=== PATIENT | female | born 2000 | race Hispanic/Latino ===

== ENCOUNTER 2023-03-02 12:25 | Emergency (ER) | payer SELFPAY ==
[2023-03-02 12:27] VITALS: BP 125/101; PULSE 98; RESP 16; TEMP 36.3; O2SAT 95; BMI 23.6
[2023-03-02 13:19] VITALS: BP 114/68; PULSE 68; RESP 16; TEMP 36.6
[2023-03-02 13:32] LABS: Mucous, Urine 0 SEEN /hpf (<or=2+); Red Blood Cells-Urine 0 SEEN /hpf (0-5)
[2023-03-02 13:35] LABS: Color, Urine Yellow (Yellow); Glucose, Dipstick Normal (Normal); Ketone-Dipstick Negative (Negative); Leukocyte Esterase-Dipstick 500 /ul (Negative); Nitrite-Dipstick Positive (Negative); Occult Blood-Urine 25 /ul (Negative); Protein-Dipstick 30 mg/dl (Negative); Specific Gravity, Urine 1.015 (1.002-1.030); Urine Clarity Sl. Cloudy (Clear); Urine Urobilinogen 1 mg/dl (Normal)
[2023-03-02 13:43] LABS: Urine Bilirubin Dipstick 1 mg/dL (Negative)
[2023-03-02 13:44] LABS: Squamous Epithelial Cells - UA 0-5 SEEN /hpf (5-10); White Blood Cells 50-100 SEEN /hpf (0-5)
[2023-03-02 13:45] LABS: Bacteria 1+ /hpf (None Seen); Internal QC Validated? YES +Cl - CLEAR BKGD; Pregnancy, Urine Negative Negative
--- NOTE | 2023-03-02 13:46 | ED.VIS.FEGU ---
HPI <KARINA Chavez - Last Filed: 03/02/23 16:27> HPI - Female History of Present Illness Chief Complaint: Complaint Narrative Narrative: Patient presenting today due to worsening increased urinary frequency and urgency and dysuria that started yesterday evening. She also reports that several days ago she noticed an odorous weight vaginal discharge that has now gone away but would like to be STD tested. She denies any history of STDs. Last menstrual period was 02/14/2023 and was regular. She also reports having vaginal discomfort with intercourse. Denies a PMH of any chronic health conditions. She denies any fever, chills, abdominal pain, nausea, and vomiting. PFSH <KARINA Chavez - Last Filed: 03/02/23 16:27> PFSH Medical History no medical history Home Medications metronidazole 500 mg tablet 500 mg PO BID 7 days #14 tabs 03/02/23 [Rx Last Taken Unknown] sulfamethoxazole 800 mg-trimethoprim 160 mg tablet (Bactrim DS) 1 tab PO BID 3 days #6 tabs 03/02/23 [Rx Last Taken Unknown] Allergy/AdvReac Type Severity Reaction Status Date / Time No Known Allergies Allergy Verified 03/02/23 12:31 Family History no significant family his Surgical History no surgical history Social History Smoking Status: Never smoker ROS <KARINA Chavez - Last Filed: 03/02/23 16:27> ROS ED Constitutional Constitutional ED: Denies chills, fever(s) or sweats Cardiovascular Cardiovascular: Denies chest pain Respiratory/Chest Respiratory/Chest: Denies cough or dyspnea Gastrointestinal Gastrointestinal: Denies abdominal pain, nausea or vomiting Genitourinary Genitourinary ED: Reports dysuria, urinary frequency and urinary urgency; Denies hematuria Musculoskeletal Musculoskeletal: Denies back pain or myalgias Integumentary Denies abscess, Abrasions or rash Neurologic Neurologic: Denies weakness EXAM <KARINA Chavez - Last Filed: 03/02/23 16:27> Physical Exam Const Vital Signs: 03/02/23 12:27 03/02/23 13:19 03/02/23 13:20 Temperature 97.3 F L 98 F Temperature Source Temporal Oral Pulse Rate 98 68 Respiratory Rate 16 16 Respiratory Pattern Normal Blood Pressure 125/101 H 114/68 Blood Pressure Mean 109 83 Pulse Ox 95 Oxygen Delivery Method Room Air Room Air 03/02/23 15:11 Temperature 97.4 F L Temperature Source Oral Pulse Rate 66 Respiratory Rate 16 Respiratory Pattern Blood Pressure 108/66 Blood Pressure Mean 80 Pulse Ox 99 Oxygen Delivery Method Room Air Positive well nourished, well developed and no apparent distress General Appearance ED: well developed HEENT Reports normocephalic and head/scalp atraumatic Mouth ED: Yes moist mucous membranes normal Eyes PERRL and EOMs intact bilaterally Neck full ROM and supple Chest Wall inspection of chest normal Resp normal respiratory effort and clear to auscultation bilaterally Cardio regular rate and regular rhythm GI soft to palpation, non-tender, non-distended and no masses Narrative: Vaginal wall tenderness with insertion of speculum, cervix visualized and is round, cervical os is closed, small amount of white discharge noted. No adnexal tenderness or masses felt. Back/Spine normal ROM and normal to inspection Extremity normal to inspection and full ROM Neuro oriented x3, CN's II-XII intact bilaterally, moves all extremities, no focal motor deficits and no sensory deficits noted Sensorium / Orientation: awake and alert Psych mental status grossly normal and thought process normal Skin no rashes or lesions noted and no wounds <Dr. Neil Zavala MD - Last Filed: 03/02/23 13:52> Physical Exam Const Vital Signs: 03/02/23 12:27 03/02/23 13:19 03/02/23 13:20 Temperature 97.3 F L 98 F Temperature Source Temporal Oral Pulse Rate 98 68 Respiratory Rate 16 16 Respiratory Pattern Normal Blood Pressure 125/101 H 114/68 Blood Pressure Mean 109 83 Pulse Ox 95 Oxygen Delivery Method Room Air Room Air 03/02/23 15:11 Temperature 97.4 F L Temperature Source Oral Pulse Rate 66 Respiratory Rate 16 Respiratory Pattern Blood Pressure 108/66 Blood Pressure Mean 80 Pulse Ox 99 Oxygen Delivery Method Room Air [facility] <KARINA Chavez - Last Filed: 03/02/23 16:27> [facility] Narrative Medical decision making narrative: Patient presenting due to dysuria and increased urinary frequency/urgency that she has had since last night. Patient is Mongolian-speaking so a online communications manager service has been used for this visit. She also reports noticing a white odorous vaginal discharge for several days. Patient did want a pelvic exam performed and wanted to be tested for STDs. UA obtained to rule out UTI and is positive, she will be started on Bactrim. On speculum examination, I do noticed a white discharge. Vaginal canal is very tender with speculum insertion, consistent with vaginitis. Wet prep does show clue cells, she will be started on Flagyl for BV. Chlamydia and gonorrhea are negative. She does not have a PCP, have given her referral for one. She has been given return instructions will be discharged home in stable condition. She is comfortable with plan. Lab Data Labs: Laboratory Results - last 24 hr 03/02/23 03/02/23 13:24 13:30 Urine Color Yellow Urine Clarity Sl. Cloudy Urine pH 6.0 Ur Specific [place] 1.015 Urine Protein 30 H Urine Glucose (UA) Normal Urine Ketones Negative Urine Occult Blood 25 H Urine Nitrite Positive H Urine Bilirubin 1 H Urine Urobilinogen 1 H Ur Leukocyte Esterase 500 H Urine RBC 0 SEEN Urine WBC 50-100 SEEN Ur Squamous Epith Cells 0-5 SEEN Urine Bacteria 1+ Urine Mucus 0 SEEN Urine Test Negative Chlamydia DNA (ORA) Cancelled N.gonorrhoeae DNA (ORA) Cancelled <Dr. Neil Zavala MD - Last Filed: 03/02/23 13:52> [facility] Lab Data Attestation: I reviewed the patient's lab results. Labs: Laboratory Results - last 24 hr 03/02/23 03/02/23 13:24 13:30 Urine Color Yellow Urine Clarity Sl. Cloudy Urine pH 6.0 Ur Specific [place] 1.015 Urine Protein 30 H Urine Glucose (UA) Normal Urine Ketones Negative Urine Occult Blood 25 H Urine Nitrite Positive H Urine Bilirubin 1 H Urine Urobilinogen 1 H Ur Leukocyte Esterase 500 H Urine RBC 0 SEEN Urine WBC 50-100 SEEN Ur Squamous Epith Cells 0-5 SEEN Urine Bacteria 1+ Urine Mucus 0 SEEN Urine Test Negative Chlamydia DNA (ORA) Cancelled N.gonorrhoeae DNA (ORA) Cancelled Treatment and Re-Evaluation Narrative: Seen and evaluated independently and in conjunction with physician assistant golf course superintendent. Agree with notes above unless documented otherwise. Healthy 23-year-old sexually active female with suprapubic pressure, urinary frequency, dysuria with pain radiating to the low back nonlateralizing for the last day. No fevers, nausea, vomiting. No hematuria. Also had a vaginal discharge and wants STD testing. Exam: Well-appearing no acute distress mild suprapubic tenderness no guarding or rebound no CVA tenderness. Plan: Urine with Prag, pelvic for wet prep, will do PCR for GC and chlamydia as well. Discharge Plan Triage Chief Complaint: Complaint Other Complaint: General Illness ED Midlevel Provider: Nia Holley ED Provider: Neil Zavala Dx/Rx/DC Orders Clinical Impression: UTI (urinary tract infection), Vaginitis Instructions: ED Cystitis Female Adult, ED Bacterial Vaginosis (BV) Prescriptions: New sulfamethoxazole-trimethoprim [Bactrim DS] 800-160 mg tablet 1 tab PO BID 3 Days Qty: 6 0RF metronidazole 500 mg tablet 500 mg PO BID 7 Days Qty: 14 0RF Primary Care Provider: Care Physician,No Primary Referrals: Stephane Rojo MD [Non-Staff] - 3-5 Days Care Physician,No Primary [Primary Care Provider] - Print Language: Mongolian Disposition Disposition: Home, Self Care Discharge Date/Time: 03/02/23 15:12
[2023-03-02 15:11] VITALS: BP 108/66; PULSE 66; RESP 16; TEMP 36.3; O2SAT 99
== END 2023-03-02 15:12 | disposition home or self-care (01) ==
PROVIDERS: Physician Assistant; Emergency Provider Emergency Medicine; Visit Provider Emergency Medicine
DX: N39.0 Urinary tract infection, site not specified (principal); N76.0 Acute vaginitis; Z11.3 Encounter for screening for infections with a predominantly sexual mode of transmission
CPT/HCPCS: 81001; 81025; 87210; 87491; 87591; 99282

== ENCOUNTER 2023-03-02 23:03 | Emergency (ER) | payer SELFPAY ==
[2023-03-02 23:04] VITALS: BP 113/59; PULSE 97; RESP 18; TEMP 37.1; O2SAT 98; BMI 22.7
[2023-03-03] MEDS: Ketorolac 15 MG/ML Vial IM (00:42)
[2023-03-03 00:59] VITALS: BP 121/60; PULSE 79; RESP 18
--- NOTE | 2023-03-03 01:46 | ED.VIS.FEGU ---
HPI HPI - Female History of Present Illness Chief Complaint: Complaint Narrative Narrative: 23-year-old female with dysuria and vaginal discomfort. Patient was seen earlier today and diagnosed with a UTI and BV. She had a pelvic exam. She was treated with Bactrim and Flagyl. She states that she still having discomfort. She thought she might have developed a fever today. She has not taken anything for pain such as ibuprofen or Tylenol. She has not take anything to mask a fever and she is afebrile here. 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 PFSH PFSH Home Medications metronidazole 500 mg tablet 500 mg PO BID 7 days #14 tabs 03/02/23 [Rx Last Taken Unknown] sulfamethoxazole 800 mg-trimethoprim 160 mg tablet (Bactrim DS) 1 tab PO BID 3 days #6 tabs 03/02/23 [Rx Last Taken Unknown] acetaminophen 650 mg tablet,extended release (Tylenol 8 Hour) 650 mg PO Q8H PRN fever or pain #30 tabs 03/03/23 [Rx Last Taken Unknown] ibuprofen 600 mg tablet 600 mg PO Q8H PRN PRN fever or pain #30 TABLETS 03/03/23 [Rx Last Taken Unknown] phenazopyridine 200 mg tablet (Pyridium) 200 mg PO Q8H PRN pain 6 doses #6 tabs 03/03/23 [Rx Last Taken Unknown] Allergy/AdvReac Type Severity Reaction Status Date / Time No Known Allergies Allergy Verified 03/02/23 23:07 Social History Smoking Status: Never smoker ROS ROS ED Constitutional Constitutional ED: Reports subjective; Denies chills or sweats Eyes Eyes: Denies change in vision ENT ENT ED: Denies ear pain or sore throat Cardiovascular Cardiovascular: Denies chest pain, palpitations or racing heartbeat Respiratory/Chest Respiratory/Chest: Denies cough, dyspnea or sputum Gastrointestinal Gastrointestinal: Denies abdominal pain, constipation, diarrhea, nausea or vomiting Genitourinary Genitourinary ED: Reports dysuria, urinary frequency and other Details: Vaginal discharge ; Denies hematuria Musculoskeletal Musculoskeletal: Denies arthralgias, myalgias or neck pain Integumentary Denies abscess, Abrasions or rash Neurologic Neurologic: Denies headache(s), paresthesias or weakness Psychiatric Psychiatric: Denies anxiety, depression, suicidal ideation or suicidal thoughts Endocrine Endocrinology: Denies polydipsia or polyuria EXAM Physical Exam Const Vital Signs: 03/02/23 23:04 03/03/23 00:59 Temperature 98.7 F Temperature Source Temporal Pulse Rate 97 79 Respiratory Rate 18 18 Blood Pressure 113/59 L 121/60 H Blood Pressure Mean 77 Pulse Ox 98 Oxygen Delivery Method Room Air Positive well nourished General Appearance ED: NAD HEENT Reports moist mucous membranes Eyes PERRL and EOMs intact bilaterally Neck no lymphadenopathy Resp normal respiratory effort and clear to auscultation bilaterally Auscultation: Negative for rales, rhonchi or wheezes Cardio regular rate and regular rhythm GI normal to inspection, nondistended, normoactive bowel sounds Neuro oriented x3 and CN's II-XII intact bilaterally Sensorium / Orientation: alert Motor Exam: strength 5/5 throughout Skin no rashes or lesions noted MDM MDM MDM Narrative Medical decision making narrative: Patient seen and evaluated for dysuria and vaginal discomfort. She had some discharge. She is diagnosed with a UTI and BV. She has not taken anything for pain today. No ibuprofen or Tylenol. After discussion I told her that we would prescribe her some Tylenol and ibuprofen which she can alternate. I will also give her some Pyridium she can take for the dysuria. I do not believe she needs a repeat pelvic and repeat urinalysis as these were done earlier today. She is amenable to this. She requested a shot of Toradol which was given. Return precautions were discussed. Impression: 1. UTI 2. BV Discharge Plan Triage Chief Complaint: Complaint ED Provider: Hermelindo Sandoval Dx/Rx/DC Orders Instructions: Bacterial Vaginosis, UTIs Women Prescriptions: New ibuprofen 600 mg tablet 600 mg PO Q8H PRN PRN (Reason: fever or pain) Qty: 30 0RF acetaminophen [Tylenol 8 Hour] 650 mg tablet extended release 650 mg PO Q8H PRN (Reason: fever or pain) Qty: 30 0RF phenazopyridine [Pyridium] 200 mg tablet 200 mg PO Q8H PRN (Reason: pain) Qty: 6 0RF No Action sulfamethoxazole-trimethoprim [Bactrim DS] 800-160 mg tablet 1 tab PO BID 3 Days Qty: 6 0RF metronidazole 500 mg tablet 500 mg PO BID 7 Days Qty: 14 0RF Primary Care Provider: Care Physician,No Primary Referrals: [facility] [Outside] - 3-5 Days Care Physician,No Primary [Primary Care Provider] - Disposition Disposition: Home, Self Care Discharge Date/Time: 03/03/23 00:59
== END 2023-03-03 00:59 | disposition home or self-care (01) ==
PROVIDERS: Emergency Provider Student in an Organized Health Care Education/Training Program; Visit Provider Student in an Organized Health Care Education/Training Program
DX: N39.0 Urinary tract infection, site not specified (principal)
CPT/HCPCS: 96372; 99282

== ENCOUNTER 2023-05-02 17:47 | Emergency (ER) | payer SELFPAY ==
[2023-05-02 17:49] VITALS: BP 96/66; PULSE 69; RESP 14; TEMP 36.2; O2SAT 100; BMI 24.0
[2023-05-02 19:39] LABS: Absolute Lymphocyte Count 1.79 X10^3/uL (0.83-4.51); Absolute Neutrophil Count 4.3 X10^3/uL (2.0-7.7); Basophil# 0.01 X10^3/uL; Basophil% 0.1 % (0-1); Eosinophil# 0.06 X10^3/uL; Eosinophils% 0.9 % (0-5); Hematocrit 34.2 % (37-47); Hemoglobin 10.5 g/dL (12.0-15.0); Lymphocyte # 1.79 X10^3/ul (0.83-4.51); Lymphocyte % 26.8 % (19-41); Mean Corp Hgb Conc 30.7 g/dL (32-36); Mean Corpuscular Hgb 21.6 pg (27.0-32.0); Mean Corpuscular Volume 70.4 fL (81-99); Mean Platelet Vol. 12.2 fl (6.2-12.0); Monocyte% 7.5 % (0-10); NRBC Flagged by Analyzer 0 % (0-5); Neutrophil # 4.31 X10^3/uL (2.7-7.7); Neutrophil % 64.4 % (47-70); Platelet Count 223 K/mm3 (150-450); RBC Distribution Width CV 15.9 % (11.6-14.6); RBC Distribution Width SD 40.3 fl (35.1-43.9); Red Blood Count 4.86 M/mm3 (4.2-5.4); White Blood Count 6.7 K/mm3 (4.4-11.0)
[2023-05-02 19:48] VITALS: RESP 15
[2023-05-02 19:55] LABS: Anion Gap 7 (5-15); BUN 8 mg/dL (7-18); BUN/Creat Ratio 14.7 RATIO (10-20); Calcium,Total 8.5 mg/dL (8.5-10.1); Chloride 103 mmol/L (98-107); Creatinine, Serum 0.55 mg/dL (0.55-1.02); EST Glomerular Filtration Rate 149 mL/min (>60); Est Glom Filt Rate - Afr Amer 180 mL/min (>60); Estimated Creatinine Clearance 116.22 ml/min; Glucose 89 mg/dL (74-106); Potassium 3.3 mmol/L (3.5-5.1); Sodium Level 135 mmol/L (136-145)
[2023-05-02 20:17] LABS: Mucous, Urine 0 SEEN /hpf (<or=2+); Red Blood Cells-Urine 0 SEEN /hpf (0-5)
[2023-05-02 20:20] LABS: Color, Urine Yellow (Yellow); Glucose, Dipstick Normal (Normal); Ketone-Dipstick Negative (Negative); Leukocyte Esterase-Dipstick 25 /ul (Negative); Nitrite-Dipstick Negative (Negative); Occult Blood-Urine Negative /ul (Negative); Protein-Dipstick Negative (Negative); Urine Bilirubin Dipstick Negative (Negative); Urine Clarity Sl. Cloudy (Clear); Urine Urobilinogen Normal (Normal); Urine pH 6.5 (5.0 - 8.0)
--- NOTE | 2023-05-02 20:41 | US_ITS ---
STUDY: FIRST TRIMESTER OBSTETRICAL ULTRASOUND REASON FOR EXAM: Female, 23 years old abdominal pain LMP: 03/16/2023 TECHNIQUE: Transabdominal and Transvaginal TECHNICAL QUALITY: Adequate. PRIOR ULTRASOUND: None. FINDINGS: There is visualization of a single gestational sac in a normal intrauterine position. The mean sac diameter (MSD) measures 1.5 cm, indicating an estimated gestational age (EGA) of 6 weeks, 2 days. The gestational sac shape is within normal limits. There is a visualized yolk sac. The yolk sac measures 2.8 mm. The placenta is non-visualized. There is visualization of a live embryo. The crown-rump length (CRL) measures 3.5 mm, indicating an estimated gestational age (EGA) of 6 weeks, 1 days. There is demonstrated cardiac activity with a heart rate of 106 bpm. The estimated gestation age (EGA) by LMP is 6 weeks, 5 days. The estimated date of delivery (COSMO) by LMP is 12/21/2023. The estimated gestation age (EGA) by US is 6 weeks, 2 days. The estimated date of delivery (COSMO) by US is 12/24/2023. The uterus measures 7.2 x 5.9 x 4.6 cm. There is no demonstrated uterine fibroid. The cervix is closed. The right ovary measures 3.4 x 2.0 x 1.3 cm. There is no right ovarian cyst. There is no visualized right adnexal mass or complex lesion. The left ovary measures 4.6 x 2.2 x 1.9 cm. There is a 2 cm left ovarian cyst. There is no visualized left adnexal mass or complex lesion. There is no fluid in the cul de sac. US/Transvaginal w/Preg US IMPRESSION: Single live intrauterine gestation with ultrasound EGA of approximately 6 weeks 2 days. Electronically Signed: Wayne Garcia MD at 21:40 EDT ,
[2023-05-02 20:48] LABS: hCG Titer Quant., Serum 13804 mIU/mL (1-3)
[2023-05-02 21:17] LABS: Bacteria RARE /hpf (None Seen); Squamous Epithelial Cells - UA 0-5 SEEN /hpf (5-10); White Blood Cells 0-5 SEEN /hpf (0-5)
[2023-05-02 22:01] VITALS: BP 105/54; PULSE 72; RESP 15; O2SAT 100
[2023-05-02 22:11] VITALS: BP 105/54; PULSE 72; RESP 15; O2SAT 100
--- NOTE | 2023-05-02 22:44 | EDS_ITS ---
HPI HPI - Female History of Present Illness Chief Complaint: Abd Pain Narrative Narrative: 23-year-old female currently unknown duration. Last menstrual period was in February. She has had no vaginal bleeding or spotting. She does have some cramping in her lower abdomen. She has not had care. She is G1, . Patient denies any urinary complaints. Patient is Algerian-speaking but prefers to use her phone for the interpretation. PFSH PFSH Medical History no medical history Home Medications metronidazole 500 mg tablet 500 mg PO BID 7 days #14 tabs 03/02/23 [Rx Last Taken Unknown] sulfamethoxazole 800 mg-trimethoprim 160 mg tablet (Bactrim DS) 1 tab PO BID 3 days #6 tabs 03/02/23 [Rx Last Taken Unknown] acetaminophen 650 mg tablet,extended release (Tylenol 8 Hour) 650 mg PO Q8H PRN fever or pain #30 tabs 03/03/23 [Rx Last Taken Unknown] ibuprofen 600 mg tablet 600 mg PO Q8H PRN PRN fever or pain #30 TABLETS 03/03/23 [Rx Last Taken Unknown] phenazopyridine 200 mg tablet (Pyridium) 200 mg PO Q8H PRN pain 6 doses #6 tabs 03/03/23 [Rx Last Taken Unknown] ondansetron 4 mg disintegrating tablet 4 mg PO Q8H PRN PRN Nausea #14 tabs 05/02/23 [Rx Last Taken Unknown] Allergy/AdvReac Type Severity Reaction Status Date / Time No Known Allergies Allergy Verified 05/02/23 17:48 Surgical History no surgical history Social History Smoking Status: Never smoker ROS ROS ED Constitutional Constitutional ED: Denies chills, fever(s) or sweats Eyes Eyes: Denies blurry vision or change in vision ENT ENT ED: Denies ear pain or sore throat Cardiovascular Cardiovascular: Denies chest pain, palpitations or racing heartbeat Respiratory/Chest Respiratory/Chest: Denies cough, dyspnea or sputum Gastrointestinal Gastrointestinal: Reports abdominal pain and nausea; Denies constipation, diarrhea or vomiting Genitourinary Genitourinary ED: Denies dysuria, hematuria or urinary frequency Musculoskeletal Musculoskeletal: Denies arthralgias, myalgias or neck pain Integumentary Denies abscess, Abrasions or rash Neurologic Neurologic: Denies headache(s), paresthesias or weakness Psychiatric Psychiatric: Denies anxiety, depression, suicidal ideation or suicidal thoughts Endocrine Endocrinology: Denies polydipsia or polyuria EXAM Physical Exam Const Vital Signs: 05/02/23 17:49 05/02/23 19:48 05/02/23 22:01 Temperature 97.2 F L Temperature Source Temporal Pulse Rate 69 72 Respiratory Rate 14 15 15 Blood Pressure 96/66 105/54 L Blood Pressure Mean 76 71 Pulse Ox 100 100 Oxygen Delivery Method Room Air Room Air Room Air 05/02/23 22:11 Temperature Temperature Source Pulse Rate 72 Respiratory Rate 15 Blood Pressure 105/54 L Blood Pressure Mean Pulse Ox 100 Oxygen Delivery Method Positive well nourished General Appearance ED: NAD HEENT Reports moist mucous membranes Eyes PERRL Resp normal respiratory effort Cardio regular rate and regular rhythm GI normal to inspection, nondistended, normoactive bowel sounds Back/Spine no CVA tenderness Neuro oriented x3 and CN's II-XII intact bilaterally Sensorium / Orientation: alert Psych mental status grossly normal Skin no rashes or lesions noted MDM MDM MDM Narrative Medical decision making narrative: Patient presenting with some lower abdominal cramping. Abdominal exam is benign. Patient has last menstrual period in February. Her hCG quant is 13,000 804. CBC and BMP unremarkable. Urinalysis negative for infection. Transvaginal ultrasound was obtained and shows live intrauterine at 6 weeks and 2 days. Given that her quant is over 13,000 this is a ectopic . Patient was given information on [employer] COMPLIANCE MANAGER. Return precautions discussed. Impression: 1. First trimester 2. Abdominal Lab Data Labs: Laboratory Results - last 24 hr 05/02/23 05/02/23 19:24 20:05 WBC 6.7 RBC 4.86 Hgb 10.5 L Hct 34.2 L MCV 70.4 L MCH 21.6 L MCHC 30.7 L RDW Std Deviation 40.3 RDW Coeff of Marla 15.9 H Plt Count 223 MPV 12.2 H Immature Gran % (Auto) 0.300 Neut % (Auto) 64.4 Lymph % (Auto) 26.8 [place] % (Auto) 7.5 Eos % (Auto) 0.9 Baso % (Auto) 0.1 Absolute Neuts (auto) 4.3 Absolute Lymphs (auto) 1.79 Nucleated RBC % 0 Sodium 135 L Potassium 3.3 L Chloride 103 Carbon Dioxide 25.0 Anion Gap 7 BUN 8 Creatinine 0.55 Estim Creat Clear Calc 116.22 Est GFR (MDRD) Af Amer 180 Est GFR (MDRD) Non-Af 149 BUN/Creatinine Ratio 14.7 Glucose 89 Calcium 8.5 HCG, Quant 38101 H Urine Color Yellow Urine Clarity Sl. Cloudy Urine pH 6.5 Ur Specific [place] 1.010 Urine Protein Negative Urine Glucose (UA) Normal Urine Ketones Negative Urine Occult Blood Negative Urine Nitrite Negative Urine Bilirubin Negative Urine Urobilinogen Normal Ur Leukocyte Esterase 25 H Urine RBC 0 SEEN Urine WBC 0-5 SEEN Ur Squamous Epith Cells 0-5 SEEN Urine Bacteria RARE Urine Mucus 0 SEEN Radiography Diagnostic Testing: Clinical Impression(s) from Imaging Studies Obstetrics Ultrasound 05/02/23 20:41 IMPRESSION: Single live intrauterine gestation with ultrasound EGA of approximately 6 weeks 2 days. Electronically Signed: Wayne Garcia MD at 21:40 EDT , Discharge Plan Triage Chief Complaint: Abd Pain ED Provider: Hermelindo Sandoval Dx/Rx/DC Orders Instructions: ED Abdominal Pain, Early Prescriptions: New ondansetron 4 mg tablet,disintegrating 4 mg PO Q8H PRN PRN (Reason: Nausea) Qty: 14 0RF No Action sulfamethoxazole-trimethoprim [Bactrim DS] 800-160 mg tablet 1 tab PO BID 3 Days Qty: 6 0RF metronidazole 500 mg tablet 500 mg PO BID 7 Days Qty: 14 0RF ibuprofen 600 mg tablet 600 mg PO Q8H PRN PRN (Reason: fever or pain) Qty: 30 0RF acetaminophen [Tylenol 8 Hour] 650 mg tablet extended release 650 mg PO Q8H PRN (Reason: fever or pain) Qty: 30 0RF phenazopyridine [Pyridium] 200 mg tablet 200 mg PO Q8H PRN (Reason: pain) Qty: 6 0RF Primary Care Provider: Care Physician,No Primary Referrals: Yvette Anna DO [Med Staff - Active Staff] - 3-5 Days Care Physician,No Primary [Primary Care Provider] - Disposition Disposition: Home, Self Care Discharge Date/Time: 05/02/23 22:24
== END 2023-05-02 22:24 | disposition home or self-care (01) ==
PROVIDERS: Emergency Provider Student in an Organized Health Care Education/Training Program; Visit Provider Student in an Organized Health Care Education/Training Program
DX: O99.891 Other specified diseases and conditions complicating pregnancy (principal); R10.30 Lower abdominal pain, unspecified; Z3A.01 Less than 8 weeks gestation of pregnancy
CPT/HCPCS: 76817; 80048; 81001; 84702; 85025; 99283; J7030; A4216

== ENCOUNTER 2023-12-18 23:47 | Inpatient (IN) | payer SELFPAY ==
[2023-12-18 22:47] VITALS: RESP 18; TEMP 36.6
[2023-12-18 22:48] VITALS: BP 116/68; PULSE 76
[2023-12-18 23:38] LABS: ROM Internal Control Test YES-OK TO RESULT pt. (Internal QC)
[2023-12-18 23:41] LABS: ROM Patient Test POSITIVE (Negative)
[2023-12-19] VITALS (28 sets, daily range): BP systolic 100–123; BP diastolic 53–68; PULSE 68–96; RESP 15–18; TEMP 36.4–37.3; O2SAT 98–99; BMI 28.5
[2023-12-19 01:14] LABS: Absolute Lymphocyte Count 2.11 X10^3/uL (0.83-4.51); Absolute Neutrophil Count 3.8 X10^3/uL (2.0-7.7); Basophil# 0.01 X10^3/uL; Basophil% 0.2 % (0-1); Eosinophil# 0.02 X10^3/uL; Eosinophils% 0.3 % (0-5); Hematocrit 34.9 % (37-47); Hemoglobin 11.1 g/dL (12.0-15.0); Lymphocyte # 2.11 X10^3/ul (0.83-4.51); Lymphocyte % 33.2 % (19-41); Mean Corp Hgb Conc 31.8 g/dL (32-36); Mean Corpuscular Hgb 22.2 pg (27.0-32.0); Mean Corpuscular Volume 69.8 fL (81-99); Monocyte# 0.37 X10^3/uL; Monocyte% 5.8 % (0-10); NRBC Flagged by Analyzer 0 % (0-5); Neutrophil # 3.82 X10^3/uL (2.7-7.7); Platelet Count 196 K/mm3 (150-450); RBC Distribution Width CV 14.8 % (11.6-14.6); RBC Distribution Width SD 36.2 fl (35.1-43.9); White Blood Count 6.4 K/mm3 (4.4-11.0)
[2023-12-19 01:42] LABS: Bedside Glucose 94 mg/dL (74-106)
[2023-12-19 01:42] LABS: Bedside Glucose 91 mg/dL (74-106)
--- NOTE | 2023-12-19 01:44 | PCM.HP.OB ---
HPI - General General Date of Admission: 12/18/23 Date of Service: 12/19/23 Chief Complaint: Leaking fluid HPI Narrative IDA MARQUEZ, is a 23 F who presents with leaking of amniotic membranes. Around 10 pm. Maternal Data Information Final COSMO: 12/21/23 Gestational age: 39+5 PFSH PFSH Medical History Gestational [employer] (ADA) 2300 calorie diet Allergy/AdvReac Type Severity Reaction Status Date / Time No Known Allergies Allergy Verified 12/18/23 23:00 Social History Smoking Status: Never smoker History 1 Elective abortions Hx Para 0 Spontaneous abortions Hx # Term Pregnancies Ectopic pregnancies Hx # Pregnancies Multiple births # of living children NST FHR Rate Baby A Baseline: 140 Variability:: Moderate Accelerations:: 15 x 15 Decelerations:: None NST Reactive:: Yes FHR Category:: Category I Uterine Activity:: q5-7 ROS Constitutional Constitutional: Denies fatigue, fever(s) or malaise Eyes Eyes: Denies change in vision ENT HEENT: Denies dizziness or headache(s) Cardiovascular Cardiovascular: Denies chest pain, dyspnea or lightheadedness Respiratory/Chest Respiratory/Chest: Denies cough or dyspnea Gastrointestinal Gastrointestinal: Denies change in bowel habits Genitourinary Genitourinary: Denies burning urination or genital lesions Integumentary Integumentary: Denies rash Neurologic Neurologic: Denies confusion, dizziness, headache(s), numbness or weakness Vital Signs Vital Signs Vital Signs: 12/18/23 22:48 12/18/23 22:48 12/18/23 22:47 Temperature Temperature Source Temporal Pulse Rate 76 Respiratory Rate Blood Pressure 116/68 BP Systolic 116 BP Diastolic 68 12/18/23 22:47 12/18/23 22:47 12/19/23 01:20 Temperature 97.9 F Temperature Source Pulse Rate Respiratory Rate 18 Blood Pressure 122/68 H BP Systolic 122 BP Diastolic 68 12/19/23 01:20 12/19/23 01:20 12/19/23 01:20 Temperature Temperature Source Temporal Pulse Rate 73 Respiratory Rate 16 Blood Pressure BP Systolic BP Diastolic 12/19/23 01:20 Temperature 98.5 F Temperature Source Pulse Rate Respiratory Rate Blood Pressure BP Systolic BP Diastolic Weight Weight: 70.76 kg Body Mass Index (BMI) 28.5 Physical Exam Const alert and no apparent distress General Appearance: cooperative HEENT normocephalic Resp normal respiratory effort GI soft to palpation GI Narrative: gravid, nontender, appropriate for gestational age Manual OB Exam: dilated 2-3, effaced 50 and station -2 Extremity no calf tenderness General Extremity: edema Skin no wounds Rashes: No rashes noted Psych activity/motor behavior normal Labs Labs Labs: Blood Type Pending Antibody Screen Pending Hct 34.9 % (37-47) L Hgb 11.1 g/dL (12.0-15.0) L Obstetrics Ultrasound Syphilis Total Ab Pending Assessment & Plan (1) PROM (premature rupture of membranes): QUALIFIERS: PROM onset of labor timing: unspecified duration between rupture of membranes and onset of labor PROM gestational age: full term Qualified Code(s): O42.92 - Full-term premature rupture of membranes, unspecified as to length of time between rupture and onset of labor (2) 39 weeks gestation of :
[2023-12-19 03:03] LABS: Syphilis Antibodies Non-reactive
[2023-12-19] MEDS: Oxytocin 15 Units/NS 250ml 15 UNITS/250 ML IV.SOLN 2 UNITS IV (04:15)
[2023-12-19] MEDS: Lactated Ringers 1,000 ML 50 ML IV ×2 (04:16→10:30)
[2023-12-19] MEDS: LACTATED RINGERS 500 ML 999 ML IV (08:30)
[2023-12-19] MEDS: fentaNYL-bupivacaine (epidural) 100 ML BAG EPIDURAL (08:55)
--- NOTE | 2023-12-19 09:14 | PN.OBGYN_ITS ---
Subjective Subjective Laying in bed on side, sister at bedside offering labor support. Father of baby present. Objective Data Objective Data Vital Signs: Vital Signs Temp Pulse Resp BP Pulse Ox 98.2 F 82 15 111/55 L 99 12/19/23 08:06 12/19/23 09:10 12/19/23 09:10 12/19/23 09:10 12/19/23 09:10 Weight: 156 lb Body Mass Index (BMI) 28.5 Intake & Output: Intake and Output for Last 24 Hours 12/17/23 12/18/23 12/19/23 23:59 23:59 23:59 Intake Total 2.4 / 2.4 Balance 2.4 / 2.4 Lab / Micro Data 12/19/23 00:30 Labs: Laboratory Results - last 24 hr 12/18/23 23:05: Vag Amniotic Fld Detect POSITIVE H 12/19/23 00:30: WBC 6.4, RBC 5.00, Hgb 11.1 L, Hct 34.9 L, MCV 69.8 L, MCH 22.2 L, MCHC 31.8 L, RDW Std Deviation 36.2, RDW Coeff of Marla 14.8 H, Plt Count 196, MPV 12.0, Immature Gran % (Auto) 0.500, Neut % (Auto) 60.0, Lymph % (Auto) 33.2, [place] % (Auto) 5.8, Eos % (Auto) 0.3, Baso % (Auto) 0.2, Absolute Neuts (auto) 3.8, Absolute Lymphs (auto) 2.11, Nucleated RBC % 0, Syphilis Total Ab Non- reactive, POC Glucose 94, Blood Type O POSITIVE, Antibody Screen NEGATIVE 12/19/23 01:24: POC Glucose 91 Physical Exam Manual OB Exam: presentation cephalic, dilated 5cm, effaced 80% and station +1 Amniotic Fluid: clear amniotic fluid NST FHR Rate Baby A Baseline: 135 Variability:: Moderate Accelerations:: 15 x 15 Decelerations:: None FHR Category:: Category I Uterine Activity:: Every 2-3 minutes, strong Assessment & Plan (1) 39 weeks gestation of : (2) PROM (premature rupture of membranes): QUALIFIERS: PROM onset of labor timing: unspecified duration between rupture of membranes and onset of labor PROM gestational age: full term Qualified Code(s): O42.92 - Full-term premature rupture of membranes, unspecified as to length of time between rupture and onset of labor (3) Anemia affecting : PLAN: Plan 1) Active labor, continue with pitocin augmenation 2) Continuous EFM 3) Epidural requested for pain management 4) Dr. Meraz collaborative physician, notified of patient status and of above assessment and plan.
[2023-12-19] MEDS: Oxytocin 15 Units/NS 250ml 15 UNITS/250 ML IV.SOLN 83 UNITS IV (13:40)
--- NOTE | 2023-12-19 13:40 | EX.PCM.OBRPT ---
Assessment & Plan (1) Vaginal delivery: (2) Second degree perineal laceration: Maternal Data Information COSMO Calculator Estimated Delivery Date Method Current WG Current Estimate 12/21/23 Manual 39w 5d Vaginal Delivery Maternal Presentation Maternal Presentation: Spontaneous Rupture of Membranes Operative Information Date of Procedure: 12/19/23 Pre-Operative Diagnosis: SROM Post-Operative Diagnosis: , 2nd degree perineal laceration Surgery / Procedure Performed: Spontaneous Vaginal Delivery Type of Anesthesia: Epidural Estimated Blood Loss: 300 ml Time of Delivery: 13:06 Findings Description of Procedure: Progressed to complete with urge to push. Epidural for pain management. of viable male infant over 2nd degree perineal laceration.APGARS 7,9 respectively. Infant head delivered with body immediately forthcoming. Placed on maternal abdomen, strong cry. Mouth and nares suctioned for secretions. Pitocin started for active 3rd stage management. Cord doubly clamped and cut by FOB after pulsations ceased, delayed cord clamping. Placenta delivered intact via patel, 3 vessel cord intact. Perineum inspected and revealed 2nd degree perineal laceration. Repaired with 3.0 vicryl rapide and epidural. Fundus firm and hemostasis achieved. EBL 300ml. Mom and baby stable, planning to to breastfeed. Family bonding well. Dr. Meraz notified of delivery. Presentation: Vertex and MICHAEL Amniotic Membrane Rupture Type: Spontaneous Amniotic Fluid Description: Clear Placental Delivery Description: Spontaneous Placenta Disposition: [facility] Cord Vessel Description: 3 Vessels Cord Entanglement: None Infant A Gender: Male (1 minute): 7 (5 minute): 9 Delayed Cord Clamping: Yes Post Vaginal Delivery Medications Given After Delivery: IV Pitocin Episiotomy Description: None Laceration: Perineal Extension/lac and 2nd degree Complication Complications: None
[2023-12-20] VITALS (10 sets, daily range): BP systolic 103–121; BP diastolic 54–77; PULSE 75–108; RESP 15–16; TEMP 36.7–37.3; O2SAT 98
[2023-12-20 06:37] LABS: Absolute Lymphocyte Count 1.85 X10^3/uL (0.83-4.51); Absolute Neutrophil Count 7.9 X10^3/uL (2.0-7.7); Basophil# 0.01 X10^3/uL; Basophil% 0.1 % (0-1); Eosinophil# 0.01 X10^3/uL; Eosinophils% 0.1 % (0-5); Hematocrit 32.1 % (37-47); Hemoglobin 10.2 g/dL (12.0-15.0); Lymphocyte # 1.85 X10^3/ul (0.83-4.51); Lymphocyte % 17.6 % (19-41); Mean Corp Hgb Conc 31.8 g/dL (32-36); Mean Corpuscular Hgb 22.2 pg (27.0-32.0); Mean Corpuscular Volume 69.9 fL (81-99); Mean Platelet Vol. 11.5 fl (6.2-12.0); Monocyte# 0.66 X10^3/uL; Monocyte% 6.3 % (0-10); NRBC Flagged by Analyzer 0 % (0-5); Neutrophil # 7.93 X10^3/uL (2.7-7.7); Neutrophil % 75.2 % (47-70); Platelet Count 186 K/mm3 (150-450); RBC Distribution Width CV 14.5 % (11.6-14.6); Red Blood Count 4.59 M/mm3 (4.2-5.4); White Blood Count 10.5 K/mm3 (4.4-11.0)
--- NOTE | 2023-12-20 09:01 | PCM.DC.SUM ---
Providers Date of Admission: 12/18/23 Primary Care Physician: No Primary Care Phys Reason For Visit: RULE OUT LABOR/VAGINAL DELIVERY Diagnosis Discharge Diagnosis (1) Vaginal delivery: Status: Acute Code(s): O80 - Encounter for full-term uncomplicated delivery (2) Second degree perineal laceration: Status: Acute Code(s): O70.1 - Second degree perineal laceration during delivery Plan PPD 1 Routine care Pain control D/C home with follow up in office. Medications at Discharge Home Medications acetaminophen 500 mg tablet 1,000 mg (2 x 500 mg) PO Q6H PRN PRN Pain 1-10 Or Fever #0 tabs 12/20/23 ibuprofen 600 mg tablet 600 mg PO Q6H PRN PRN Pain Score 1-10 #0 tabs 12/20/23 Hospital Course Operations None Procedures None Summary of Care Provided Minutes Spent on Discharge: 20 Hospital Course: Patient had . Hospital course was uneventful. Physical Exam Narrative Patient seen at bedside. Sitting on couch with partner. Interpretation services utilized. Denies any pain. Ambulating and voiding without difficulty. Feeling crampy. Lochia is minimal. Both breast and formula feeding. Desires discharge home. Const alert and no apparent distress General Appearance: cooperative and comfortable Exam Limitations: no limitations HEENT normocephalic Eyes General Eye: normal appearance of both eyes Neck full ROM General: normal visual inspection Chest Chest: symmetrical chest wall rise Resp normal respiratory effort and normal air movement Effort and Inspection: symmetric chest movement Auscultation: clear to auscultation bilaterally Cardio regular rate and regular rhythm GI normal to inspection, nondistended, normoactive bowel sounds Back/Spine normal ROM Extremity full ROM and no calf tenderness General Extremity: normal exam except as noted Skin no rashes or lesions noted Neuro CN's II-XII intact bilaterally Psych mental status grossly normal Weight / BMI Weight Weight: 156 lb Body Mass Index (BMI) 28.5 ABG / Lab / Microbiology Data 12/20/23 06:20 Laboratory: Laboratory Results - last 24 hr 12/20/23 06:20: WBC 10.5, RBC 4.59, Hgb 10.2 L, Hct 32.1 L, MCV 69.9 L, MCH 22.2 L, MCHC 31.8 L, RDW Std Deviation 36.0, RDW Coeff of Marla 14.5, Plt Count 186, MPV 11.5, Immature Gran % (Auto) 0.700, Neut % (Auto) 75.2 H, Lymph % (Auto) 17.6 L, [place] % (Auto) 6.3, Eos % (Auto) 0.1, Baso % (Auto) 0.1, Absolute Neuts (auto) 7.9 H, Absolute Lymphs (auto) 1.85, Nucleated RBC % 0 D/C Instructions Discharge Diet: No restrictions May resume sexual activity in: 6-8 weeks Weight Bearing Status: Weight bearing as tolerated Call your doctor if you observe: Fever of 101 or Higher, Inability to urinate, Using more than 1 pad per hour, Shortness of breath, Chest pain, Calf discomfort and Uncontrolled pain Please Follow Up With: Shama Hanks CNM When: 2 weeks virtual visit/ 6 weeks in office Meaningful Use Info Meaningful Use Meaningful Use Diagnoses (Choose all that apply): None applicable Ischemic Stroke Statin Dosing Therapy Reference: STATIN DOSE THERAPY REFERENCE: * Patients > 75 years receive moderate or high dose statin therapy. * Patients 75 years or YOUNGER should receive HIGH intensity statin dose unless contraindicated. You will be required to document reason for non-treatment if statin daily dose does not meet guidelines. HIGH DOSE STATIN THERAPY DAILY Atorvastatin > than or = to 40 mg Rosuvastatin > than or = to 20 mg Amlodipine + Atorvastatin > than or = to 2.5/40 mg Ezetimibe + Simvastatin 10/80 mg Simvastatin 80mg Discharge Plan Admission Admit Date/Time: 12/18/23 23:47 Primary Reason for Your Visit: Labor and Delivery Attending Provider: Krystal Baltazar Primary Care Provider: Care Physician,No Primary Consulting Providers: Yvette Franco Discharge Orders/Prescriptions Prescriptions: New acetaminophen 500 mg Tablet 1,000 mg PO Q6H PRN PRN (Reason: Pain 1-10 Or Fever) Qty: 0 0RF ibuprofen 600 mg Tablet 600 mg PO Q6H PRN PRN (Reason: Pain Score 1-10) Qty: 0 0RF Referrals / Follow Up: Care Physician,No Primary [Primary Care Provider] - Disposition Disposition (needs filled in before D/C Order can be placed): Home, Self Care
[2023-12-20] MEDS: Ibuprofen 600 MG Tablet PO (09:34)
--- NOTE | 2023-12-20 14:28 | CASEMGMT ---
Social Work Assessment Labor and Delivery Unit Patient Address:[place] [address] Phone number: [phone] Date of Referral: 12/19/23 Time of Referral:? [id number] Referred By: Yvette Franco Date of Intervention: ??12/20/23 Time of Intervention:? 0 Reason for Referral:? resources discharge planning and limited income Sw completed chart review and acknowledges social work consult due to need for resources and other social concerns. Sw presented to bedside and introduced self to mother of baby (MOB- Brenda) and father of baby (FOB- Brenda) and explained sw role. Also at this time technical sales representative from [employer] was also meeting with MOB and obtaining necessary information to submit application for baby and MOB to apply for Medicaid. Sw used [place]ian iPad counter clerk, Agatha- ID# [id number] to assist in translating assessment. History obtained from: medical records, MOB and FOB Household composition: MOB states at this time that she is residing with her sister and FOB is living with his family. MOB denies any issues or concerns with her current housing at this time. Patient's parent/guardian status:? ?MOB states that she and FOB knew each other while they were both still in [place]. They were introduced to each other by mutual friends. MOB states that they have been together for 5 years. No concerns of domestic violence or intimate partner violence. Medical History: ?JUNAID is 23 year old [facility] woman who is 1, para 0- now 1 following labor and delivery of . JUNAID received care during with [facility]. JUNAID presented to hospital and delivered baby via vaginal delivery at 39 weeks gestation. Baby's name is, Cassandra Davis, who's weight was 7lb 10oz and his apgars were 7 and 9 at one and five minutes of life, respectfully. MOB states that baby will be followed by [facility]. Educational Status:? Not discussed at this time. Financial Status: Neither parents is employed or has any source of steady income (that is reported). MOB states that she lives with her sister who helps her financially. MOB states that she is also connected to several resources that help her financially. Supplies:??MOB states that she does not have a car seat, and reports that she may not be able to be discharged today because she does not have a car seat. Sw asked MOB what her plans were on obtaining a car seat. MOB stated that a friend is giving her one. Sw asked MOB if the friend would be able to get the car seat to the hospital today so that they would be able to be discharged. MOB stated that the friend would be able to bring the car seat today. - Ciara asked MOB if she has other baby supplies that she needs, such as: clothes, diapers, wipes and feeding supplies. MOB states that she only has what the hospital has provided for her. Sw noted a diaper bag sitting on a table. MOB stated that she has some clothes for the baby. Sw asked MOB what her plans were for obtaining all the things that she needs for baby. MOB stated that she was going to ask for help. Sw provided MOB with list of local resources to help her obtain necessary baby supplies ([facility]). Childcare/Caregiver(s):? MOB is the primary caregiver to baby. Transportation:??MOB and FOB do not drive. MOB states that for appointments she has friends help her with transportation, or she will use an UBER or arrange a taxi. - Sw explained to MOB that when she has been approved for Medicaid she can use her medicaid to arrange transportation for medical appointments. Programs/Agencies Involved: ??MOB states that she is connected to [place]. Sw informed MOB that she needs to inform them as soon as she is able that she has baby due to wait time to be seen. MOB expressed understanding. Ciara also provided MOB with information for [facility], [facility], and [place]. ? Children Services/Legal Issues:??? No history of involvement, no issues or concerns warranting referral at this time. Behavioral Health Issues: ??Mental Health History:?FOB and MOB deny mental health history. ?? Substance Use History:?MOB denies substance use prior to and during . ? Family History:??MOB denies family history of significant mental health diagnoses and substance use. ??? Drug Screens: ??None observed in chart review. Family/Social Stressors:? Parents are non- [place] immigrants from [place]. [place] two [place]. Parents are unemployed and do not have their drivers license/ means of transportation. MOB states that she does not have everything she needs for baby (diapers/ wipes). Resources were provided, and some clothing was given to MOB for baby. Support Systems: MOB states that her mom is a support to her, but she still resides in [place]. Depression/Shaken Baby/Safe Sleeping:? Sw provided parents with information regarding signs and symptoms of baby blues and depression and anxiety to be on the look out for. MOB expressed understanding. Sw also educated MOB on shaken baby prevention and ABCs of safe sleep. ASSESSMENT:? MOB and baby admitted following labor and delivery. MOB with limited resources, supports and supplies for baby. [employer] used, however the putty mixer and applier stated that it was difficult to hear, so some things may have been lost in translation. FOB was observed to check on baby when he made noises, but did not participate in assessment. MOB was receptive to sw involvement and support. MOB made eye contact and answered questions. PLAN:?MOB and baby to be discharged when medically ready. MOB has a friend bringing the baby's car seat in between 5-6 for discharge today. ?No other services requested or indicated. Fabiana Burnette, TICKET TAKER FERRYBOAT, EVALUATION ENGINEER
--- NOTE | 2023-12-20 19:43 | NURSING ---
1900 pts friend brought in a car seat- infant placed in seat by mother
== END 2023-12-20 19:10 | disposition home or self-care (01) | DRG 807 ==
LOC: WP 12-19 09:30
PROVIDERS: Obstetrics & Gynecology; Admitting Provider Advanced Practice Midwife; Referring Provider Advanced Practice Midwife; Visit Provider Advanced Practice Midwife
DX: O42.92 Full-term premature rupture of membranes, unspecified as to length of time between rupture and onset of labor (principal); Z37.0 Single live birth; O70.1 Second degree perineal laceration during delivery; O99.02 Anemia complicating childbirth; Z3A.39 39 weeks gestation of pregnancy; Z59.82 Transportation insecurity; Z59.86 Financial insecurity
CPT/HCPCS: 59025; 59050; 82962; 84112; 85025; 86780; 86850; 86900; 86901; 99221; J7120; G0378

== ENCOUNTER 2024-07-10 20:23 | Emergency (ER) | payer OTHER, SELFPAY ==
[2024-07-10 20:24] VITALS: BP 113/68; PULSE 80; RESP 18; TEMP 36.7; O2SAT 98; BMI 39.2
--- NOTE | 2024-07-10 21:32 | EDS_ITS ---
HPI History of Present Illness Chief Complaint: Wound Check Narrative Narrative: History and physical mildly limited secondary to language barrier as patient speaks primarily Lao. [employer] grades 1 thru 6 visiting teacher was used using electronic tablet. 24-year-old female, [id number], presents with injury that she sustained at work on 07/01/2024. She states that there was conveyor belt that was moving, and while she was wearing gloves, the gloves were loose. Her hand, the dorsal aspect, hit the conveyor belt that was moving, and she sustained a friction burn to the dorsum of her right hand. Initially, she had been seen at an urgent care, and was given 8 days off work. While that has , she states that she returned to urgent care in my [place], and was told that she needed to go to the hospital because of the possibility of a wound infection. They did not give her antibiotics. She noted that she may have been feverish over the last few days but noticed a yellow discharge and over the last 1 to 2 days from her wound. She states that it was more foul-smelling today. She presents wanting more time off work because she is unable to use her right hand secondary to her wound. She also states that she was sent here because of a wound infection. [facility] Medical History Second degree perineal laceration Vaginal delivery Anemia affecting 39 weeks gestation of PROM (premature rupture of membranes) Gestational [place] [employer] (ADA) 2300 calorie diet Home Medications ?Medication ?Instructions ?Recorded ?Last Taken ?Type acetaminophen 500 mg tablet 1,000 mg (2 x 500 mg) PO Q6H PRN 12/20/23 Unknown Rx PRN Pain 1-10 Or Fever #0 tabs ibuprofen 600 mg tablet 600 mg PO Q6H PRN PRN Pain Score 12/20/23 Unknown Rx 1-10 #0 tabs cephalexin 500 mg capsule 500 mg PO TID #21 caps 07/10/24 Unknown Rx Allergy/AdvReac Type Severity Reaction Status Date / Time No Known Allergies Allergy Verified 12/18/23 23:00 Social History Smoking Status: Never smoker ROS ROS ED ROS Narrative Review of systems positive for wound on dorsum of right hand present over the last 9 days. Intermittent subjective fever. Positive yellow drainage from wound over the last 1 to 2 days. Malodorous. Able to move fingers. Denies other symptoms. EXAM Physical Exam Narrative Exam Narrative: Afebrile. Vital signs noted. Nontoxic-appearing. Cardiovascular examination reveals a regular rate and rhythm. Lungs clear to auscultation bilaterally. Abdomen soft nontender with normal active bowel sounds. Inspection of the right hand does reveal a large eschar/scab/healing wound on the dorsum without noted fluctuance or purulent drainage, no active bleeding. No surrounding erythema, n o lymphangitis. Palpable radial pulse. Good capillary refill of fingers. Able to move fingers of right hand. Const Vital Signs: 07/10/24 20:24 Temperature 98.0 F Temperature Source Temporal Pulse Rate 80 Respiratory Rate 18 Blood Pressure 113/68 Blood Pressure Mean 83 Pulse Ox 98 Oxygen Delivery Method Room Air MDM MDM MDM Narrative Medical decision making narrative: Patient is afebrile here. She is here for a wound check. While I see no overt signs of an infection, she will be treated prophylactically with antibiotics. She was written a prescription for Keflex 500 mg to take 3 times a day. Additionally, she was given a note for limited use of her right hand/no use of her right hand for the next week that she can take to work. She was referred to the [facility] clinic for further wound checks. I do not feel that she requires imaging or laboratory work. I feel she can be discharged to follow-up. Return instructions to the emergency department were reviewed. All questions answered. Disposition is discharged home in stable condition. History & Record Review Discussion w/independent historian: Patient Discharge Plan Triage Chief Complaint: Wound Check ED Provider: Anoop Hernandez Dx/Rx/DC Orders Clinical Impression: Encounter for post-traumatic wound check, Friction burn Instructions: ED Wound Check (Infection) Prescriptions: New cephalexin 500 mg capsule 500 mg PO TID Qty: 21 0RF No Action acetaminophen 500 mg Tablet 1,000 mg PO Q6H PRN PRN (Reason: Pain 1-10 Or Fever) Qty: 0 0RF ibuprofen 600 mg Tablet 600 mg PO Q6H PRN PRN (Reason: Pain Score 1-10) Qty: 0 0RF Primary Care Provider: Care Physician,No Primary Referrals: Care Physician,No Primary [Primary Care Provider] - Clinic,[facility] [Non-Staff] - 3-5 Days Activity Restrictions/Additional Instructions: Follow-up with the now clinic as needed. Return with fever, increased drainage from your wound, new or worsening symptoms. Print Language: Lao Disposition Disposition: Home, Self Care
[2024-07-10 22:31] VITALS: PULSE 88; RESP 18; TEMP 36.6; O2SAT 98
== END 2024-07-10 22:31 | disposition home or self-care (01) ==
PROVIDERS: Emergency Provider Emergency Medicine; Visit Provider Emergency Medicine
DX: T23.001A Burn of unspecified degree of right hand, unspecified site, initial encounter (principal); X58.XXXA Exposure to other specified factors, initial encounter
CPT/HCPCS: 99282